=== PATIENT | male | born 1975 | race Caucasian/White ===

== ENCOUNTER 2021-08-14 11:40 | Emergency (ER) | payer OTHER ==
[~2021-08-14] VITALS: Ht 175.3 cm; Wt 90.9 kg
[2021-08-14] MEDS ORDERED: LIDOcaine 1% 30ml preserv. free vial IJ ONE (12:00)
[2021-08-14] MEDS ORDERED: TETanus/Pertussis (Acell)/Diphther VAC/PF (Tdap-Adult) 0.5ml syringe IMVAC ONE (12:00)
[2021-08-14] MEDS ORDERED: HYDROcodone/acetaminophen 10/325mg tab PO ONE (12:00)
[2021-08-14] MEDS ORDERED: ondansetron 4mg rapidly disintigrating tab PO ONE (12:25)
[2021-08-14] MEDS ORDERED: ceFAZolin/D5W- 1GM premix 50 ML IV ONE (12:55)
[2021-08-14] MEDS ORDERED: ondansetron/PF 4mg/2ml inj IV ONE (12:55)
[2021-08-14] MEDS ORDERED: morphine 4 MG/ML inj SYRINge IV ONE (12:55)
[2021-08-14] MEDS ORDERED: HYDR-3965 PO (14:12)
[2021-08-14] MEDS ORDERED: CEPH250T PO (14:12)
[2021-08-14] MEDS ORDERED: oxyCODONE/APAP 10/325mg tablet PO ONE (14:20)
[2021-08-14 14:37] VITALS: BP 135/86
== END 2021-08-14 14:45 | disposition home or self-care (01) ==
LOC: ER 11:40
DX: S61.313A Laceration without foreign body of left middle finger with damage to nail, initial encounter (principal); S61.315A Laceration without foreign body of left ring finger with damage to nail, initial encounter; Z89.022 Acquired absence of left finger(s); Z88.6 Allergy status to analgesic agent; Z79.899 Other long term (current) drug therapy; W31.89XA Contact with other specified machinery, initial encounter; Y93.89 Activity, other specified; Y92.89 Other specified places as the place of occurrence of the external cause; Y99.8 Other external cause status
CPT/HCPCS: 13132; 73130; 90471; 90715; 96365; 96375; 99285; A6222; J0690; J2270; J2405; J7030; A6449